=== PATIENT | male | born 1935 | race Caucasian/White ===

== ENCOUNTER 2022-05-02 13:43 | Inpatient (IN) | payer MEDICARE ==
[2022-05-02] MEDS ORDERED: SODIUM CHLORIDE 0.9% 1,000 ML IV STA (14:00)
--- NOTE | 2022-05-02 14:12 | ED Physician Documentation ---
History of Present Illness - Stated complaint Stated Complaint: DIZZINESS/WEAK - Chief complaint Chief Complaint: Neuro - History obtained from History obtained from: Patient - Additonal information Additional information: The patient comes to the emergency department with chief complaint of right leg weakness that has been going on on and off since yesterday. He also states the just in general feels as though his balance is "off". He states that he has not had any other neurologic symptoms whatsoever. No right arm weakness. No weakness in his left side. No visual changes or speech difficulties. No facial drooping. Patient states he has not had any word finding difficulties. He states he is otherwise fairly healthy and does not have any history of any cardiac issues or stroke. He does not have hypertension or diabetes. He states that right now he is feeling "pretty good", but that he still feels as though his balance is off. He denies any back pain. No lightheadedness. No other complaints at this time. Review of Systems Ten Systems: 10 systems reviewed and negative Constitutional: reports: Reviewed and negative Eyes: reports: Reviewed and negative Ears: reports: Reviewed and negative Nose: reports: Reviewed and negative Throat: reports: Reviewed and negative Cardiac: reports: Reviewed and negative Respiratory: reports: Reviewed and negative GI: reports: Reviewed and negative : reports: Reviewed and negative Skin: reports: Reviewed and negative Musculoskeletal: reports: Reviewed and negative Neurologic: reports: Focal weakness Psychiatric: reports: Reviewed and negative Endocrine: reports: Reviewed and negative Immunocompromised: reports: Reviewed and negative PD PAST MEDICAL HISTORY - Present Medications Home Medications: Ambulatory Orders Medication Instructions Recorded Confirmed Aspirin EC [Ecotrin] 81 mg PO DAILY #30 tab 05/04/22 Levothyroxine [Synthroid] 112 mcg PO QDAC #30 tab 05/04/22 - Allergies Allergies/Adverse Reactions: Allergies Allergy/AdvReac Type Severity Reaction Status Date / Time No Known Drug Allergies Allergy Verified 05/02/22 13:57 PD ED PE NORMAL - Vitals Vital signs reviewed: Yes - General General: No acute distress, Well developed/nourished, Other (The patient is alert and mildly confused.) - HEENT HEENT: Atraumatic, PERRL, EOMI, Moist mucous membranes - Neck Neck: Supple, no meningeal sign - Cardiac Cardiac: RRR, No murmur, Strong equal pulses - Respiratory Respiratory: No respiratory distress, Clear bilaterally - Abdomen Abdomen: Soft, Non tender, Non distended - Back Back: No CVA TTP - Derm Derm: Normal color, Warm and dry, No rash - Extremities Extremities: No deformity, No edema - Neuro Neuro: filer finish 2-12 intact, No sensory deficit, Normal speech, Other (5 out of 5 strength in all 4 extremities, though strength is ever so slightly decreased on the right lower extremity compared with the left. ) - Psych Psych: Normal mood, Normal affect PD ED PE EXPANDED - Neuro Neuro: Other (Alert and answers questions appropriately, but does occasional repetitive questioning, indicating that he has some memory lapse. His NIH stroke scale score is 0.) Results - Vitals Vitals: Oxygen O2 Source Room air - EKG (time done) 1406 Rate: Rate (enter#) (69) Rhythm: NSR [place]: Normal, Anterior hemiblock Intervals: Normal [place] QRS: Normal Ischemia: Normal ST segments Computer interpretation: Agree with computer - Labs Labs: Laboratory Tests 05/02/22 05/02/22 05/02/22 14:14 14:14 14:20 WBC 7.0 RBC 4.52 L Hgb 13.7 L Hct 40.7 L MCV 90.0 MCH 30.3 MCHC 33.7 RDW 14.1 Plt Count 290 MPV 9.3 Neut # (Auto) 4.9 Lymph # (Auto) 1.5 [place] # (Auto) 0.4 Eos # (Auto) 0.0 Baso # (Auto) 0.0 Absolute Nucleated RBC 0.00 Nucleated RBC % 0.0 PT 12.8 H INR 1.1 Sodium 138 Potassium 3.6 Chloride 106 Carbon Dioxide 24 Anion Gap 8.0 BUN 14 Creatinine 0.9 Estimated GFR (MDRD) 80 L Glucose 155 H Estimat Average Glucose Hemoglobin A1c % Calcium 9.4 Total Bilirubin 0.6 AST 28 ALT 25 Alkaline Phosphatase 50 Total Protein 8.0 Albumin 4.0 Globulin 4.0 Albumin/Globulin Ratio 1.0 Triglycerides Cholesterol LDL Cholesterol, Calc VLDL Cholesterol HDL Cholesterol LDL/HDL Ratio Cholesterol/HDL Ratio Lipase 35 TSH Nasal Adenovirus (PCR) Nasal B. parapertussis DNA (PCR) Nasal Coronavir 229E PCR Nasal Coronavir HKU1 PCR Nasal Coronavir NL63 PCR Nasal Coronavir OC43 PCR Nasal Enterovir/Rhinovir PCR Nasal Influenza B PCR Nasal Influenza A PCR Nasal Parainfluen 1 PCR Nasal Parainfluen 2 PCR Nasal Parainfluen 3 PCR Nasal Parainfluen 4 PCR Nasal RSV (PCR) Nasal B.pertussis DNA PCR Nasal C.pneumoniae (PCR) Fish Human Metapneumo PCR Nasal M.pneumoniae (PCR) Nasal SARS-CoV-2 (PCR) 05/02/22 05/03/22 05/03/22 14:30 06:18 06:18 WBC RBC Hgb Hct MCV MCH MCHC RDW Plt Count MPV Neut # (Auto) Lymph # (Auto) [place] # (Auto) Eos # (Auto) Baso # (Auto) Absolute Nucleated RBC Nucleated RBC % PT INR Sodium Potassium Chloride Carbon Dioxide Anion Gap BUN Creatinine Estimated GFR (MDRD) Glucose Estimat Average Glucose Hemoglobin A1c % Calcium Total Bilirubin AST ALT Alkaline Phosphatase Total Protein Albumin Globulin Albumin/Globulin Ratio Triglycerides 143 Cholesterol 222 H LDL Cholesterol, Calc 160 H VLDL Cholesterol 29 HDL Cholesterol 33 L LDL/HDL Ratio 4.8 Cholesterol/HDL Ratio 6.7 Lipase TSH 10.46 H Nasal Adenovirus (PCR) NOT DETECTED Nasal B. parapertussis DNA (PCR) NOT DETECTED Nasal Coronavir 229E PCR NOT DETECTED Nasal Coronavir HKU1 PCR NOT DETECTED Nasal Coronavir NL63 PCR NOT DETECTED Nasal Coronavir OC43 PCR NOT DETECTED Nasal Enterovir/Rhinovir PCR NOT DETECTED Nasal Influenza B PCR NOT DETECTED Nasal Influenza A PCR NOT DETECTED Nasal Parainfluen 1 PCR NOT DETECTED Nasal Parainfluen 2 PCR NOT DETECTED Nasal Parainfluen 3 PCR NOT DETECTED Nasal Parainfluen 4 PCR NOT DETECTED Nasal RSV (PCR) NOT DETECTED Nasal B.pertussis DNA PCR NOT DETECTED Nasal C.pneumoniae (PCR) NOT DETECTED Fish Human Metapneumo PCR NOT DETECTED Nasal M.pneumoniae (PCR) NOT DETECTED Nasal SARS-CoV-2 (PCR) NOT DETECTED 05/03/22 06:18 WBC RBC Hgb Hct MCV MCH MCHC RDW Plt Count MPV Neut # (Auto) Lymph # (Auto) [place] # (Auto) Eos # (Auto) Baso # (Auto) Absolute Nucleated RBC Nucleated RBC % PT INR Sodium Potassium Chloride Carbon Dioxide Anion Gap BUN Creatinine Estimated GFR (MDRD) Glucose Estimat Average Glucose 140 H Hemoglobin A1c % 6.5 H Calcium Total Bilirubin AST ALT Alkaline Phosphatase Total Protein Albumin Globulin Albumin/Globulin Ratio Triglycerides Cholesterol LDL Cholesterol, Calc VLDL Cholesterol HDL Cholesterol LDL/HDL Ratio Cholesterol/HDL Ratio Lipase TSH Nasal Adenovirus (PCR) Nasal B. parapertussis DNA (PCR) Nasal Coronavir 229E PCR Nasal Coronavir HKU1 PCR Nasal Coronavir NL63 PCR Nasal Coronavir OC43 PCR Nasal Enterovir/Rhinovir PCR Nasal Influenza B PCR Nasal Influenza A PCR Nasal Parainfluen 1 PCR Nasal Parainfluen 2 PCR Nasal Parainfluen 3 PCR Nasal Parainfluen 4 PCR Nasal RSV (PCR) Nasal B.pertussis DNA PCR Nasal C.pneumoniae (PCR) Fish Human Metapneumo PCR Nasal M.pneumoniae (PCR) Nasal SARS-CoV-2 (PCR) - Rads (name of study) CT head Radiology: Final report received, EMP read indepedently, See rad report (nad) MRI Brain Radiology: Final report received, EMP read indepedently, See rad report (Pontine infarct, subacute) CTA head Radiology: Final report received, EMP read indepedently, See rad report (Ne gative) CTA neck Radiology: Final report received, EMP read indepedently, See rad report (No hemodynamically significant stenosis. 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 The labs were unremarkable, as were EKG and CT scan. He was next sent for an MRI of the brain without contrast, which showed a small, subacute, pontine infarct. CTA showed no hemodynamically significant stenoses in the head or neck vasculature. I consulted neurology at [facility] and spoke with Dr. Soraida Azevedo, the stroke attending on duty. She recommended observation admission for TTE and PT OT. She also recommended Plavix 300 mg and a dose of aspirin, as well as to continue dual antiplatelet therapy for 21 days, then cut down to just aspirin. All of the above were ordered. 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 At this point in time, I have put in a consult to the telemetry hospitalist for admission for the patient. As it is past shift change, I have signed this patient out to Dr. Lyles, pending conversation with hospitalist and final disposition. Departure - Departure Disposition: [facility] DC/Xfer Clinical Impression: Left pontine stroke Condition: Serious Discharge Date/Time: 05/02/22 20:48
[2022-05-02 14:24] LABS: BASOPHILS % (AUTO) 0.6 %; EOSINOPHILS % (AUTO) 0.6 %; HCT - HEMATOCRIT 40.7 % (42.0-52.0); HGB - HEMOGLOBIN 13.7 g/dL (14.0-18.0); LYMPHOCYTES # (AUTO) 1.5 10^3/uL (1.5-3.5); LYMPHOCYTES % (AUTO) 21.7 %; MEAN CORPUSCULAR HEMOGLOBIN 30.3 pg (27.0-31.0); MEAN CORPUSCULAR HGB CONC 33.7 g/dL (32.0-36.0); MEAN PLATELET VOLUME 9.3 fL (7.4-11.4); MONOCYTES # (AUTO) 0.4 10^3/uL (0.0-1.0); MONOCYTES % (AUTO) 6.3 %; NEUTROPHILS # (AUTO) 4.9 10^3/uL (1.5-6.6); NEUTROPHILS % (AUTO) 70.7 %; PLT - PLATELET COUNT 290 10^3/uL (130-450); RED BLOOD COUNT 4.52 10^6/uL (4.70-6.10); RED CELL DISTRIBUTION WIDTH 14.1 % (12.0-15.0)
[2022-05-02 14:33] LABS: INR 1.1 (0.8-1.2); PT - PROTHROMBIN TIME 12.8 secs (9.9-12.6)
[2022-05-02 14:38] LABS: BILIRUBIN,TOTAL 0.6 mg/dL (0.2-1.0); CALCIUM 9.4 mg/dL (8.5-10.3); CREATININE 0.9 mg/dL (0.6-1.2); POTASSIUM 3.6 mmol/L (3.5-5.0)
[2022-05-02 15:25] LABS: B. PARAPERTUSSIS- RESP PCR PAN NOT DETECTED; B. PERTUSSIS- RESP PCR PANEL NOT DETECTED; C. PNEUMONIAE- RESP PCR PANEL NOT DETECTED; CORONAVIRUS 229E-RESP PCR NOT DETECTED; CORONAVIRUS HKU1-RESP PCR NOT DETECTED; CORONAVIRUS NL63-RESP PCR NOT DETECTED; CORONAVIRUS OC43-RESP PCR NOT DETECTED; HUMAN METAPNEUMOVIRUS NOT DETECTED; INFLUENZA A- RESP PCR PANEL NOT DETECTED; INFLUENZA B - RESP PCR PANEL NOT DETECTED; M. PNEUMONIAE- RESP PCR PANEL NOT DETECTED; PARAINFLUENZA VIRUS 1 NOT DETECTED; PARAINFLUENZA VIRUS 2 NOT DETECTED; PARAINFLUENZA VIRUS 3 NOT DETECTED; PARAINFLUENZA VIRUS 4 NOT DETECTED; RHINOVIRUS/ENTEROVIRUS NOT DETECTED; RSV- RESP PCR PANEL NOT DETECTED; SARS-CoV-2 -RESP PCR PANEL NOT DETECTED
--- NOTE | 2022-05-02 15:51 | CT Report ---
PROCEDURE: HEAD WO INDICATIONS: RLE weakness, off-balance TECHNIQUE: Noncontrast 4.5 mm thick angled axial sections acquired from the foramen magnum to the vertex. For r adiation dose reduction, the following was used: automated exposure control, adjustment of mA and/or kV according to patient size. COMPARISON: None. FINDINGS: Image quality: Excellent. CSF spaces: Basal cisterns are patent. No extra-axial fluid collections. Ventricles are normal in size and shape. Brain: No midline shift. No intracranial masses or hemorrhage. Omer-white matter interface is norm al. Skull and face: Calvarium and visualized facial bones are intact, without suspicious lesions. Sinuses: Visualized sinuses and mastoids are clear. IMPRESSION: No intracranial hemorrhage or other acute intracranial abnormality. Reviewed by: Srinath Rust MD on 05/02/2022 3:49 PM PDT Approved by: Srinath Rust MD on 05/02/2022 3:49 PM PDT Station ID: [id number]
--- NOTE | 2022-05-02 16:39 | MRI Report ---
PROCEDURE: BRAIN WO INDICATIONS: RLE weakness, imbalance TECHNIQUE: Noncontrast axial T1 spin echo, axial T2 fast spin echo, sagittal and axial FLAIR, coronal T2 fast sp in echo, axial gradient echo, axial diffusion and ADC through the brain. COMPARISON: Correlation is made with head CT performed earlier in the day, 05/02/2022. FINDINGS: Image quality: Motion artifact is noted. CSF Spaces: Basal cisterns are patent. No extra-axial fluid collections. Ventricles are normal in size and shape. Brain: There is abnormal diffusion weighted signal seen within the left medial jannette, as on series 14 image 29. There is associated dark signal seen at this site on the accompanying ADC map. Mild develo ping T2-weighted signal can be seen at this site, as on series 8 image 6. No intracranial masses or hemorrhage. Omer/white matter interface is normal. Brainstem appears norm al. No chronic ischemic insults. Normal intravascular flow voids are present. Skull and face: Calvarium has normal marrow signal. Orbits appear normal. Sinuses: Sinuses and mastoids are clear. IMPRESSION: Subacute left pontine infarction. Reviewed by: Asad Perez MD on 05/02/2022 3:38 PM ABY Approved by: Asad Perez MD on 05/02/2022 3:38 PM AKANMOL Station ID: [id number]
[2022-05-02] MEDS ORDERED: ASPIRIN CHEW 81 MG TABLET PO STA (17:39)
[2022-05-02] MEDS ORDERED: iohexoL-300 100 ML VIAL ONE (17:41)
[2022-05-02] MEDS ORDERED: iohexoL-300 100 ML VIAL IVP ONE (18:22)
--- NOTE | 2022-05-02 18:33 | CT Report ---
PROCEDURE: ANGIO NECK W INDICATIONS: L sided facial droop, L neck pain CONTRAST: 80ml Omnipaque 300 TECHNIQUE: After the administration of intravenous contrast, 1.5 mm axial sections acquired from the aortic arch to the [place] of [place]. Coronal 3-D maximum intensity projection (MIP) and/or volume rendering ref ormats were then performed. For radiation dose reduction, the following was used: automated exposur e control, adjustment of mA and/or kV according to patient size. COMPARISON: Correlation is made with the accompanying noncontrast head CT and brain MRI examinations , 05/02/2022. Correlation is made with the accompanying head CT antrum, 05/02/2022. FINDINGS: Image quality: Excellent. Carotid system: The great vessels demonstrate a conventional anatomy as they arise from the aortic a rch. The origins of the common carotid arteries appear patent. The common carotid arteries demonstr ate normal calibers and courses. The bifurcation regions appear normal bilaterally. The internal ca rotid arteries demonstrate normal caliber and course. Posterior circulation: The origins of the vertebral arteries appear patent. The more superior porti ons of the vertebral arteries demonstrate normal course and caliber. They join to form a normal appe aring basilar artery. Soft tissues: Visualized neck soft tissues demonstrate no suspicious abnormalities. The thyroid is normal in size and there are no incidental findings. In this patient with a given history of left facial droop, scrutiny is given to the course of the lef t facial nerve, including within the left parotid gland. No nasal masses or abnormal enhancement can be seen along the course of the left facial nerve, to the limits of CT. No significant right-sided ab normality is seen. Within the right superior mediastinum, there is an apparent soft tissue mass seen that measures 3 x 2 .5 cm, as on series 2 image 59. Bones: No suspicious bony lesions. Visualized cervical spine appears normally aligned. Moderate c ervical spine degenerative changes are seen. IMPRESSION: No hemodynamically significant stenosis can be seen within the arteries of the neck. 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 When clinically appropriate, please consider a dedicated chest CT with IV contrast for further ev aluation. The estimate of stenosis included in the report of the imaging study was calculated using the NASCET method Reviewed by: Asad Perez MD on 05/02/2022 5:32 PM AKDT Approved by: Asad Perez MD on 05/02/2022 5:32 PM ABY Station ID: [id number]
--- NOTE | 2022-05-02 18:34 | CT Report ---
PROCEDURE: ANGIO HEAD W/WO INDICATIONS: L sided facial droop CONTRAST: 80ml Omnipaque 300 TECHNIQUE: Precontrast 4.5 mm thick angled axial sections acquired from the foramen magnum to the vertex. Afte r the administration of intravenous contrast, 1 mm thick sections acquired through the [place] is. Postcontrast 4.5 mm thick sections then re-acquired from the foramen magnum to the vertex. 3-di mensional ucegbjn-kexawxrii-vxpqyusdjx (MIP) and/or volume rendering reformats were acquired of the c entral intracranial vasculature. For radiation dose reduction, the following was used: automated ex posure control, adjustment of mA and/or kV according to patient size. COMPARISON: Correlation is made with the accompanying noncontrast head CT as well as the prior brain MRI and the accompanying neck CT angiogram examinations performed on 05/02/2022. FINDINGS: Image quality: Excellent. Anterior circulation: Intracranial internal carotid arteries are normal in size and flow. The flow within the paired anterior cerebral arteries is normal and symmetric. The flow within the middle cer ebral arteries is normal and symmetric. The anterior communicating artery is seen. No aneurysms are seen. Posterior circulation: Visualized portions of the vertebral arteries demonstrate normal caliber, and join to form a normal appearing basilar artery. Flow within the posterior cerebral arteries is norm al and symmetric. No aneurysms are seen. CSF spaces: Ventricles are normal in size and shape. Basal cisterns are patent. No extra-axial flu id collections. Brain: The known left pontine infarction is not well seen on this study. No midline shift. No intra cranial bleeds or masses. Omer-white matter interface appears intact. Skull and face: Calvarium and facial bones appear intact, without suspicious lesions. Sinuses: Visualized sinuses and mastoids are clear. IMPRESSION: No imaging explanation is found for the patient's presenting symptoms. No culprit lesion is seen to explain the patient's left pontine infarction. Reviewed by: Asad Perez MD on 05/02/2022 5:33 PM ABY Approved by: Asad Perez MD on 05/02/2022 5:33 PM ABY Station ID: [id number]
[2022-05-02] MEDS ORDERED: CLOPIDOGREL 300 MG TABLET PO STA (19:14)
[2022-05-02] MEDS ORDERED: ATORVASTATIN 40 MG TABLET PO STA (19:15)
[2022-05-02] MEDS ORDERED: ONDANSETRON 4 MG/2 ML VIAL IVP PRN (19:36)
[2022-05-02] MEDS ORDERED: ACETAMINOPHEN 325 MG TABLET PO PRN (19:36)
[2022-05-02] MEDS ORDERED: HYDROcod/ACETAM 5/325 MG TABLET PO PRN (19:36)
[2022-05-02] MEDS ORDERED: HYDROcod/ACETAM 10 MG/325 MG TABLET PO PRN (19:36)
[2022-05-02] MEDS ORDERED: SODIUM CHLORIDE FLUSH 0.9% 10 ML SYRINGE IVP PRN (19:36)
--- NOTE | 2022-05-02 19:44 | XRAY Report ---
PROCEDURE: Chest 1 View X-Ray INDICATIONS: chest pain TECHNIQUE: One view of the chest was acquired. COMPARISON: None. FINDINGS: Surgical changes and devices: None. Lungs and pleura: No pleural effusions or pneumothorax. Lungs are clear. Mediastinum: Mediastinal contours appear normal. Heart size is normal. Bones and chest wall: No suspicious bony lesions. Overlying soft tissues appear unremarkable. IMPRESSION: No acute cardiopulmonary process demonstrated radiographically. Reviewed by: Wisam Neumann MD on 05/02/2022 7:43 PM PDT Approved by: Wisam Neumann MD on 05/02/2022 7:43 PM PDT Station ID: [id number]
--- NOTE | 2022-05-02 19:48 | ED Physician Documentation ---
ED Addendum - Addendum Addendum: 05/02/22 19:47 Patient endorsed to me by Dr. Martel awaiting telehealth admission per neurologist recommendations. d/w telehealth, accepting for admission. d/w patient and family who are agreeable.
--- NOTE | 2022-05-02 20:19 | HISTORY & PHYSICAL EXAMINATION ---
Chief Complaint - Chief Complaint Chief Complaint: Dizziness with right sided weakness History of Present Illness - Admitted From Admitted From:: ER - History Obtained From Records Reviewed: yes History obtained from: Patient and his daughter Babs at bedside Exam Limitations: Telecart - History of Present Illness HPI Comment/Other: The patient comes to the emergency department with chief complaint of right leg weakness that has been going on on and off since yesterday. He also states the just in general feels as though his balance is "off". He states that he has not had any other neurologic symptoms whatsoever. No right arm weakness. No weakness in his left side. No visual changes or speech difficulties. No facial drooping. Patient states he has not had any word finding difficulties. He states he is otherwise fairly healthy and does not have any history of any cardiac issues or stroke. He does not have hypertension or diabetes. He states that right now he is feeling "pretty good", but that he still feels as though his balance is off. He denies any back pain. No lightheadedness. No other complaints at this time. 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 No smoking, rarely a glass of wine, no illicit drugs. History - Past Medical History Cardiovascular: reports: None Respiratory: reports: None Neuro: reports: None Endocrine/Autoimmune: reports: None GI: reports: None VEHICLE DAMAGE APPRAISER: reports: None : reports: None HEENT: reports: None Psych: reports: None Musculoskeletal: reports: None Derm: reports: None Meds/Allgy - Home Medications Home Medications: Ambulatory Orders Medication Instructions Recorded Confirmed No Known Home Medications 05/02/22 05/02/22 - Allergies Allergies/Adverse Reactions: Allergies Allergy/AdvReac Type Severity Reaction Status Date / Time No Known Drug Allergies Allergy Verified 05/02/22 13:57 Review of Systems - Constitutional Constitutional: reports: Weakness - Neurological Neurological: reports: Dizziness, Other (right lower extremity decrease in strenght) Prior Level of Functionality: Excellent with his ADL still drives and daily exercise Exam - Vital Signs Vital Signs: Vital Signs x48h Temp Pulse Resp BP Pulse Ox 05/02/22 19:00 74 16 156/98 H 100 05/02/22 17:00 60 16 130/88 H 96 05/02/22 15:56 56 L 16 132/92 H 98 05/02/22 13:56 36.5 C 73 16 143/83 H 94 05/02/22 13:49 36.4 C L 73 16 143/83 H 94 - Physical Exam General Appearance: positive: No acute distress, Alert Eyes Bilateral: positive: Normal inspection, PERRL, Other (Wears Glasses) ENT: positive: ENT inspection nml, Pharynx nml, No signs of dehydration Neck: positive: Nml inspection, Thyroid nml, No JVD, Trachea midline Respiratory: positive: Chest non-tender, No respiratory distress, Breath sounds nml Cardiovascular: positive: Regular rate & rhythm, No murmur, No gallop Peripheral Pulses: positive: 2+ Abdomen: positive: Non-tender, No organomegaly, Nml bowel sounds, No distention Back: positive: Nml inspection Skin: positive: Color nml, No rash, Warm, Dry Extremities: positive: Non-tender, Full ROM, Nml appearance Neurologic/Psychiatric: positive: Oriented x3, CN's nml (2-12), Other (Mild weakness in right lower ext) Sepsis Event Note (H) - Evaluation Current Stage of Sepsis: Ruled out Conclusion/Plan - Problem List (1) Left pontine stroke Conclusion/Plan: Admit for observation TeleNeurology consulted by ER Recommended ASA 325 mg with Plavix 300 mg Will start on Statin Family apprehensive about statin will discuss mroe with am CTA of Head negative CTA of neck negative Incidental mediastinal lymph node enlargement Will need CT chest with contrast as outpatient Check TSH, Lipid, A1c PT/ot Koby TTE to rule out any PFO vs any LAE bus monitor to r/o any arrhythmias once all work up completed and if able to ambulate safely plan to dc in 24 hours Discussed all the above with patient and daughter SCD Full code - Lab Results Fish Bones: 05/02/22 14:14 05/02/22 14:14 - Diagnostic Imaging Results Diagnostic Imaging Results: positive: Final report reviewed - EKG Results EKG Comparison: Old EKG unavailable
[2022-05-03] MEDS: SODIUM CHLORIDE FLUSH 0.9% 10 ML SYRINGE IVP SCH ×3 (00:09→16:31)
[2022-05-03 06:41] LABS: CHOL/HDL RATIO 6.7 (<5.0); CHOLESTEROL 222 mg/dL; HDL CHOLESTEROL 33 mg/dL; LDL CHOLESTEROL,CALCULATED 160 mg/dL; LDL/HDL RATIO 4.8 (<3.6); TRIGLYCERIDES 143 mg/dL; VLDL CHOLESTEROL 29 mg/dL
[2022-05-03] MEDS ORDERED: ASPIRIN 325 MG TABLET PO SCH (09:00)
[2022-05-03 12:55] LABS: ESTIMATED AVERAGE GLUCOSE 140 mg/dL (70-100); HEMOGLOBIN A1c% 6.5 % (4.27-6.07)
--- NOTE | 2022-05-03 12:58 | PROVIDER PROGRESS NOTE ---
Assessment/Plan - Problem List (1) Left pontine stroke Assessment/Plan: He noticed that he is staggering to his R side with walking. He denies any other complaints. His daughter is at bedside and states that his short-term memory has been not great over the last 3 years and it is not any different today. (He forgets some of the names of his 15 grandchildren, he forgets some of his 4 children's names because they did not live with him due to a divorce). Telemetry shows sinus rhythm, no signs of A. fib. An Echo has been ordered, not done yet today. PT and OT evaluations have been ordered. PT does confirm that he walks with a stagger, needs a cane or front wheel walker for support. OT is to do a cognitive evaluation today. Plan: Continue with daily aspirin. I will not continue both aspirin and Plavix currently, since he has never been on ASA.. Awaiting the Echo. Because of his memory impairment, and new stroke, restrictions for driving will be ordered. A DMV form was completed and submitted today. I told the patient and daughter at bedside about this new restriction. We are allowing permissive hypertension for 24 to 48 hours. Check fasting lipids. He will be made an Inpatient given the persistent neurologic deficit and awaiting further medication adjustments and results of testing (2) Hypothyroidism associated with surgical procedure Assessment/Plan: Daughter reports that when he lived in [place] (until moving to [facility] 3 years ago), he underwent a thyroid partial removal for unknown diagnosis. The patient confirms this and cannot remember what his diagnosis was. The daughter reported he is prescribed a thyroid replacement which has and he does not take it anyway. The daughter then went on to say that she "does not believe in pharmaceuticals, believes in using natural treatments is much as possible". It is unclear if she ever reminded him to use this prescription medication therefore. I then discussed his high TSH level (indicating untreated Hypothyroidism) with the patient and daughter at bedside. Will resume the patient on Synthroid. His home dose was 137 mcg. We will start 112 mcg daily every morning. This will need outpatient follow-up with lab tests and further management. (3) Poor short term memory Assessment/Plan: Patient has extremely poor short-term memory; he asked where he was of his RN just 5 minutes apart after being told. He underwent a cognitive evaluation by OT today and scored 23/30. 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 The daughter gave examples of this poor memory as well; He cannot remember the names of his 15 grandchildren but "who can remember 15 names?". He cannot remember some of his 4 children's names but "we children did not live with him since being youngsters because of the divorce of parents, he had the kids during caballero only". 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 She says he now only drives from the house to a restaurant and post office, no other places. Because of his acute stroke plus poor memory, a DMV form has been submitted by this Hospitalist to restrict his driving. I told the patient and his daughter that driving can be reconsidered and re-ordered when he is reevaluated by his PCP, for example, after Home Health PT. - Current Meds Current Meds: Current Medications Generic Name Dose Route Start Last Admin Trade Name Jamari PRN Reason Stop Dose Admin Sodium Chloride 10 ml 05/03/22 01:00 05/03/22 09:09 Sodium Chloride Flush 0.9% 10 Ml Syringe IVP 10 ml 0100,0900,1700 [facility] Administration - Lab Result Fish Bone Diagrams: 05/02/22 14:14 05/02/22 14:14 - Other Other Results/Comments: Attestation: The patient is expected to be discharged or transferred to another facility within 96 hours: Yes - Additional Planning My Orders: My Active Orders 05/03/22 10:06 Telemetry- [RC] Q4HR 05/03/22 Lunch DIET [Low Sodium Diet] [DIET] 05/04/22 09:00 Aspirin EC [Ecotrin] 81 mg PO DAILY Subjective - Subjective Patient Reports: Resting Comfortably, Other (L foot weak) Nursing Reports: Other (RN and PT notice he staggers to the R.) Objective Vital Signs: Vital Signs - 24 hr 05/02/22 05/02/22 05/02/22 13:49 13:56 15:56 Temperature 36.4 C L 36.5 C Heart Rate 73 73 56 L Heart Rate [ Brachial] Respiratory 16 16 16 Rate Blood Pressure 143/83 H 143/83 H 132/92 H Blood Pressure [Left Brachial artery] Blood Pressure [Right Brachial artery] O2 Saturation 94 94 98 05/02/22 05/02/22 05/02/22 17:00 19:00 21:07 Temperature 36.4 C L Heart Rate 60 74 Heart Rate [ 61 Brachial] Respiratory 16 16 18 Rate Blood Pressure 130/88 H 156/98 H Blood Pressure 160/94 H [Left Brachial artery] Blood Pressure [Right Brachial artery] O2 Saturation 96 100 97 05/03/22 05/03/22 05/03/22 00:07 06:20 09:14 Temperature 36.3 C L 36.3 C L 36.7 C Heart Rate Heart Rate [ 60 67 85 Brachial] Respiratory 20 18 18 Rate Blood Pressure Blood Pressure 167/81 H 156/89 H [Left Brachial artery] Blood Pressure 166/91 H [Right Brachial artery] O2 Saturation 97 96 95 Oxygen O2 Source Room air I&O (Last 24 Hrs): Intake and Output Totals x24h 05/01/22 05/02/22 05/03/22 23:59 23:59 23:59 Intake Total 1000 420 Balance 1000 420 General: Alert, No acute distress HEENT: Atraumatic, Mucous membr. moist/pink Neck: Supple, No JVD Neuro: Alert, Disoriented (He had to ask where he is repeatedly during the same bedside visit), Other (L foot and leg weakness) Cardiovascular: Regular rate, No murmurs Respiratory: No respiratory distress, Breath sounds nml Abdomen: Normal bowel sounds, Soft Extremities: No clubbing, No edema - Results Results: Laboratory Results WBC 7.0 x10^3/uL (4.8-10.8) 05/02/22 14:14 RBC 4.52 10^6/uL (4.70-6.10) L 05/02/22 14:14 Hgb 13.7 g/dL (14.0-18.0) L 05/02/22 14:14 Hct 40.7 % (42.0-52.0) L 05/02/22 14:14 MCV 90.0 fL (80.0-94.0) 05/02/22 14:14 MCH 30.3 pg (27.0-31.0) 05/02/22 14:14 MCHC 33.7 g/dL (32.0-36.0) 05/02/22 14:14 RDW 14.1 % (12.0-15.0) 05/02/22 14:14 Plt Count 290 10^3/uL (130-450) 05/02/22 14:14 MPV 9.3 fL (7.4-11.4) 05/02/22 14:14 Neut # (Auto) 4.9 10^3/uL (1.5-6.6) 05/02/22 14:14 Lymph # (Auto) 1.5 10^3/uL (1.5-3.5) 05/02/22 14:14 [place] # (Auto) 0.4 10^3/uL (0.0-1.0) 05/02/22 14:14 Eos # (Auto) 0.0 10^3/uL (0.0-0.7) 05/02/22 14:14 Baso # (Auto) 0.0 10^3/uL (0.0-0.1) 05/02/22 14:14 Absolute Nucleated RBC 0.00 x10^3/uL 05/02/22 14:14 Nucleated RBC % 0.0 /100WBC 05/02/22 14:14 PT 12.8 secs (9.9-12.6) H 05/02/22 14:20 INR 1.1 (0.8-1.2) 05/02/22 14:20 Sodium 138 mmol/L (135-145) 05/02/22 14:14 Potassium 3.6 mmol/L (3.5-5.0) 05/02/22 14:14 Chloride 106 mmol/L (101-111) 05/02/22 14:14 Carbon Dioxide 24 mmol/L (21-32) 05/02/22 14:14 Anion Gap 8.0 (6-13) 05/02/22 14:14 BUN 14 mg/dL (6-20) 05/02/22 14:14 Creatinine 0.9 mg/dL (0.6-1.2) 05/02/22 14:14 Estimated GFR (MDRD) 80 (>89) L 05/02/22 14:14 Glucose 155 mg/dL (70-100) H 05/02/22 14:14 Calcium 9.4 mg/dL (8.5-10.3) 05/02/22 14:14 Total Bilirubin 0.6 mg/dL (0.2-1.0) 05/02/22 14:14 AST 28 IU/L (10-42) 05/02/22 14:14 ALT 25 IU/L (10-60) 05/02/22 14:14 Alkaline Phosphatase 50 IU/L (42-121) 05/02/22 14:14 Total Protein 8.0 g/dL (6.7-8.2) 05/02/22 14:14 Albumin 4.0 g/dL (3.2-5.5) 05/02/22 14:14 Globulin 4.0 g/dL (2.1-4.2) 05/02/22 14:14 Albumin/Globulin Ratio 1.0 (1.0-2.2) 05/02/22 14:14 Triglycerides 143 mg/dL (-149) 05/03/22 06:18 Cholesterol 222 mg/dL (-199) H 05/03/22 06:18 LDL Cholesterol, Calc 160 mg/dL (-129) H 05/03/22 06:18 VLDL Cholesterol 29 mg/dL 05/03/22 06:18 HDL Cholesterol 33 mg/dL (60-) L 05/03/22 06:18 LDL/HDL Ratio 4.8 (<3.6) 05/03/22 06:18 Cholesterol/HDL Ratio 6.7 (<5.0) 05/03/22 06:18 Lipase 35 U/L (22-51) 05/02/22 14:14 TSH 10.46 uIU/mL (0.34-5.60) H 05/03/22 06:18 Nasal Adenovirus (PCR) NOT DETECTED 05/02/22 14:30 Nasal B. parapertussis DNA (PCR) NOT DETECTED 05/02/22 14:30 Nasal Coronavir 229E PCR NOT DETECTED 05/02/22 14:30 Nasal Coronavir HKU1 PCR NOT DETECTED 05/02/22 14:30 Nasal Coronavir NL63 PCR NOT DETECTED 05/02/22 14:30 Nasal Coronavir OC43 PCR NOT DETECTED 05/02/22 14:30 Nasal Enterovir/Rhinovir PCR NOT DETECTED 05/02/22 14:30 Nasal Influenza B PCR NOT DETECTED 05/02/22 14:30 Nasal Influenza A PCR NOT DETECTED 05/02/22 14:30 Nasal Parainfluen 1 PCR NOT DETECTED 05/02/22 14:30 Nasal Parainfluen 2 PCR NOT DETECTED 05/02/22 14:30 Nasal Parainfluen 3 PCR NOT DETECTED 10 14:30 Nasal Parainfluen 4 PCR NOT DETECTED 05/02/22 14:30 Nasal RSV (PCR) NOT DETECTED 05/02/22 14:30 Nasal B.pertussis DNA PCR NOT DETECTED 05/02/22 14:30 Nasal C.pneumoniae (PCR) NOT DETECTED 05/02/22 14:30 Fish Human Metapneumo PCR NOT DETECTED 05/02/22 14:30 Nasal M.pneumoniae (PCR) NOT DETECTED 05/02/22 14:30 Nasal SARS-CoV-2 (PCR) NOT DETECTED 05/02/22 14:30 Sepsis Event Note (H) - Evaluation Current Stage of Sepsis: Ruled out
[2022-05-03] MEDS ORDERED: CLOPIDOGREL 75 MG TABLET PO SCH (20:00)
[2022-05-03] MEDS ORDERED: ATORVASTATIN 40 MG TABLET PO SCH ×2 (20:00→21:00)
[2022-05-04] MEDS: SODIUM CHLORIDE FLUSH 0.9% 10 ML SYRINGE IVP SCH ×2 (07:00→11:22)
[2022-05-04] MEDS ORDERED: LEVOTHYROXINE 75 MCG TABLET PO SCH (07:00)
[2022-05-04] MEDS ORDERED: LEVOTHYROXINE 112 MCG TABLET PO SCH (07:00)
[2022-05-04 08:04] LABS: CALCIUM 9.4 mg/dL (8.5-10.3); CREATININE 0.8 mg/dL (0.6-1.2); POTASSIUM 3.5 mmol/L (3.5-5.0)
[2022-05-04] MEDS ORDERED: ASPIRIN EC 81 MG TABLET PO SCH (09:00)
[2022-05-04 11:19] VITALS: BP 149/80
--- NOTE | 2022-05-04 13:08 | Discharge Plan ---
Discharge Plan Problem Reviewed?: Yes Disposition: 06 Home Health Service Condition: Fair Prescriptions: Aspirin EC [Ecotrin] 81 mg PO DAILY #30 tab Levothyroxine [Synthroid] 112 mcg PO QDAC #30 tab Diet: Cardiac (Low salt, low starches and sweets, and low fat diet.) Activity Restrictions: Activity as Tolerated Shower Restrictions: No Driving Restrictions: Yes (No driving due to poor memory & new stroke) Assistance Devices: Walker Weight Bearing: Full Weight Instruction Topics: ED Stroke Completed Health Concerns: The patient was admitted to the hospital because of a stroke. He has weakness of the right leg and foot and a staggering gait. He needs to use a walker for ambulation for balance and support. We also found that he has very poor short- term memory, and has poor insight and questionable decision-making capabilities. Physical Therapy evaluated the patient and recommends he undergo further PT at home. Driving is now restricted/prohibited because of the poor memory and the stroke causing leg weakness. Occupational Therapy documented his poor memory and poor insight and has advised he have 24/7 support, and should not live alone. It is expected that he will need reminders about taking his medications as prescribed. A referral has been sent for a Home Health agency to provide in- home PT, OT, also a Bath Aid, RN and Hunter. The cause of the stroke is plaque with clot and cholesterol that blocks an artery in the brain. He was therefore evaluated for cholesterol level and his is high (his LDL bad cholesterol was 222 a160 and should be 70-100 in a patient who had a stroke). He now needs to be on a low-cholesterol diet and if no better in several months, then a statin cholesterol medication needs to be considered. We checked him for diabetes because his serum blood glucose levels are elevated more than normal and found him to be a borderline diabetic with A1c of 6.3. This means he needs to eat a low carbohydrate diet (decreasing his starches and sweets). He could have further management with his diet by his Primary Care Provider. Going out often to eat restaurant food is therefore not advised. He should now be taking 1 aspirin daily, as a mild "blood thinner", to prevent another stroke. He should be on this lifelong unless there is hemorrhage. We also tested his thyroid level and it is negligible in his bloodstream therefore thyroid medication, which he stopped taking, has been newly prescribed. I suspect he will not be as confused with an improved blood thyroid hormone level. This requires a blood check in 1 to 2 months to adjust the dose if needed. New prescriptions for Synthroid and daily enteric-coated aspirin have been electronically sent to the [facility]. Plan of Treatment: As above. Care Goals: Improvement in symptoms and stabilization are the goals. Assessment: These instructions are provided as a reminder for the patient and his daughter. Additional Instructions or Follow Up instructions: The patient should see his primary care provider, Dr. Monroe, in 1 to 2 weeks for hospital follow-up office visit. Dr. Monroe will adjust his medications going forward. Also, if the patient has new or worsening symptoms, call Dr. Monroe's office for advice or come to the ER. No Smoking: If you smoke, Please STOP! Call for help. Follow-up with: Fabio Monroe MD [Provider Admit Priv/Credential] -
--- NOTE | 2022-05-04 13:38 | DISCHARGE SUMMARY ---
Discharge Summary Admit Date: 05/02/22 Discharge Date: 05/04/22 Discharging Provider: Dr Suzanne Villagran Primary Care Provider: Dr Fabio Monroe Code Status: Attempt Resuscitation Condition at Discharge: Serious Discharge Disposition: [facility] History of Present Illness: The patient comes to the emergency department with chief complaint of right leg weakness that has been going on on and off since yesterday. He also states the just in general, he feels as though his balance is "off". He states that he has not had any other neurologic symptoms whatsoever. No right arm weakness. No weakness in his left side. No visual changes or speech difficulties. No facial drooping. Patient states he has not had any word finding difficulties. He states he is otherwise fairly healthy and does not have any history of any cardiac issues or stroke. He does not have hypertension or diabetes. He states that right now he is feeling "pretty good", but that he still feels as though his balance is off. He denies any back pain. No lightheadedness. No other complaints at this time. 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 In ER he looks comfortable able to move all 4 ext, cranial nerves 2 to 12 intact, takes some multivitamins and supplements but no other meds and is in top 10 percentile of people in his age group when it comes to exercise and living a healthy lifestyle. No smoking, rarely a glass of wine, no illicit drugs. He is being placed in Observation to evaluate a TIA versus stroke. - HOSPITAL COURSE Hospital Course: (1) Left pontine stroke He underwent stroke evaluation and the CT head showed no acute changes, his CTA head and neck showed stenoses. He was made an Inpatient given the persistent neurologic deficit. His daughter at bedside said his short-term memory has been poor over the last 3 years, especially the last 2 mos, and felt it was not any different. He received Aspirin and Plavix in the ER. Telemetry showed no signs of A. fib. An Echo showed normal LVEF and no intra-cardiac clot or shunt. PT evaluation noted that he had a shuffling gait, poor balance, was staggering to the right and recommended a front wheel walker for ambulation and that he continue to have more PT. OT evaluation reported good ADL abilities but poor memory. Because of his memory impairment, and new stroke, restrictions for driving were ordered and a DMV form submitted. He was discharged on a daily baby aspirin. He needs a walker or cane for ambulation. (2) Hypothyroidism associated with surgical procedure Daughter reported that when he lived in [place] (until moving to [facility] 3 years ago), he underwent a partial thyroid removal for unknown diagnosis. The patient could not remember what his diagnosis was. The daughter reported he was prescribed a thyroid replacement which has and he "did not take it anyway". The daughter then went on to say that she herself "does not believe in pharmaceuticals, but believes in using natural treatments is much as possible". It is unclear if she therefore reminded him to use this prescription medication. His TSH level was 10.4, indicating under treated Hypothyroidism. He was started on Synthroid replacement. His old home dose was 137 mcg. He was discharged on 112 mcg daily every morning. (This may help his memory somewhat). He will need outpatient follow-up with thyroid lab testing in 1-2 mos. (3) Poor short term memory Patient has extremely poor short-term memory; he asked where he was of his RN just 5 minutes after being told. The daughter gave examples of his poor memory as well; he cannot remember the names of his 15 grandchildren but she diminished this by saying "who can remember 15 names?". He also cannot remember some of his 4 children's names but said "we children did not live with him since being youngsters because of the divorce of the parents, and he only had the kids during caballero". He underwent a cognitive evaluation by OT and scored 23/30 (Mild Cognitive Impairment. 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 She reported he now only drives from the house to the [facility] restaurant and post office. The driving restriction was strongly endorsed and a DMV form was submitted by this Hospitalist to restrict his driving, because of his acute stroke plus poor memory. I told the patient and his daughter that driving could be reconsidered and restriction lifted, when he is reevaluated by his PCP, however, I feel that will be very unlikely given his marked confusion that we witnessed. OT recommended that he can no longer live alone, and even needs 24/7 supervision now. The daughter said she would arrange for that. (4) Acute Delirium On his second night as an inpatient, he had hospital psychosis (with sundowning), was awake all night. He got out of bed 20 times, pulled out his IV several times, pulled off his telemetry. He thought he was on a boat and later thought that he was in his own home and was about to call the police. His d lulaer was called overnight and briefly could reorient him. The next morning, in her presence, he tried to answer questions about these events by joking. (5) Borderline DM His morning fasting labs showed glucose levels of 143-155. Therefore an A1c was drawn and returned at 6.3, consistent with borderline diabetes. The daughter was counseled that he needs to decrease his starches and sweets and that eating daily at the [employer] and having desserts frequently is no longer advised. He needs follow-up with his PCP regarding better glucose control. (6) Elevated cholesterol His fasting lipid levels showed a total cholesterol of 222 with LDL 160. The daughter was advised that the LDL should be between 70 and 100. Initial management should be to decrease fried foods and fatty foods and once again eating at [employer] daily is no longer advised. - ALLERGIES Allergies/Adverse Reactions: Allergies Allergy/AdvReac Type Severity Reaction Status Date / Time No Known Drug Allergies Allergy Verified 05/02/22 13:57 - MEDICATIONS Home Medications: Ambulatory Orders Medication Instructions Recorded Confirmed Aspirin EC [Ecotrin] 81 mg PO DAILY #30 tab 05/04/22 Levothyroxine [Synthroid] 112 mcg PO QDAC #30 tab 05/04/22 - PHYSICAL EXAM AT DISCHARGE General Appearance: positive: No acute distress, Alert Eyes Bilateral: positive: Normal inspection, EOMI ENT: positive: ENT inspection nml, No signs of dehydration Neck: positive: Nml inspection, No JVD Respiratory: positive: No respiratory distress, Breath sounds nml Cardiovascular: positive: Regular rate & rhythm, No murmur Abdomen: positive: Non-tender, No distention Skin: positive: Warm, Dry Extremities: positive: Non-tender, No pedal edema Neurologic/Psychiatric: positive: Disoriented to person, Disoriented to place, Disoriented to time, Weakness (R leg) - LABS Result Diagrams: 05/02/22 14:14 05/04/22 07:50 - DIAGNOSTIC IMAGING Diagnostic Imaging Results: Final report reviewed - SEPSIS Current Stage of Sepsis: Ruled out - FOLLOW UP Follow Up: See PCP in 1 week for a hospital follow up visit. - TIME SPENT Time Spent in Discharge (Minutes): 45
== END 2022-05-04 14:37 | disposition home health service (06) | DRG 66 ==
LOC: ED 13:43 → MS2 19:37 → OBSVTOIN 05-03 10:04
PROVIDERS: ADMIT Internal Medicine; ATTEND Internal Medicine
DX: I63.89 Other cerebral infarction (principal); G83.11 Monoplegia of lower limb affecting right dominant side; R91.8 Other nonspecific abnormal finding of lung field; Z20.822 Contact with and (suspected) exposure to COVID-19; R26.0 Ataxic gait; R29.700 NIHSS score 0; E89.0 Postprocedural hypothyroidism; R41.3 Other amnesia; R73.03 Prediabetes; E78.00 Pure hypercholesterolemia, unspecified; R41.0 Disorientation, unspecified
CPT/HCPCS: 36415; 70450; 70496; 70498; 70551; 71045; 80048; 80053; 80061; 83036; 83690; 84443; 85025; 85610; 87633; 93005; 93306; 97162; 97166; 97530; 99284; 99285; A9270; G0378; Q9967; 83721

== ENCOUNTER 2022-06-21 12:20 | Outpatient (CLI) | payer MEDICARE ==
[2022-06-21 12:43] LABS: CREATININE 0.8 mg/dL (0.6-1.2)
[2022-06-21] MEDS ORDERED: iohexoL-300 100 ML VIAL ONE (13:24)
[2022-06-21] MEDS ORDERED: iohexoL-300 100 ML VIAL IVP ONE (14:24)
--- NOTE | 2022-06-21 17:36 | CT Report ---
PROCEDURE: CHEST W INDICATIONS: MEDIASTINAL LYMPH NODE CONTRAST:100ml Omnipaque 300 TECHNIQUE: After the administration of intravenous contrast, 1 mm axial images were acquired from the pulmonary apices through the posterior costophrenic angles. Axial 5 mm soft tissue kernel reconstructions were performed as well as 8 mm axial MIP and coronal and sagittal 5 mm reformations. For radiation dose reduction, the following was used: automated exposure control, adjustment of mA and/or kV according to patient size. COMPARISON: CTA neck dated 05/02/2022.. FINDINGS: Image quality: Excellent. Lungs and pleura: No pulmonary nodules. No acute air space opacities. No pleural effusions or pneum othorax. Central and peripheral airways are patent and normal in caliber. Mediastinum: Heart size is normal. No pericardial effusion. A superior mediastinal mass, to the rig ht of the trachea, has increased in size over short period of time. On previous image 60/2 it measure d approximately 2.8 x 3.1 cm. On current image 14/3 it measures approximately 3.8 x 3.9 cm. It is hig hly suspicious for malignancy. It may potentially extrinsically involve the wall of the upper thoraci c esophagus. No other mediastinal adenopathy. Thoracic aorta and central pulmonary arteries are feli l in size. Esophagus is normal in caliber. No hiatal hernia. Bones and chest wall: No suspicious bony lesions. No vertebral body compression fractures. No axil alexis or supraclavicular adenopathy by size criteria. The thyroid is normal in size and there are no incidental findings.. Abdomen: Visualized upper abdominal solid organs appear normal. Upper abdominal bowel loops are nor mal in caliber. Moderate proximal celiac artery stenosis. IMPRESSION: 1. Rapid interval growth over short period of time of a superior mediastinal mass to the right the tr achea, possibly extrinsically involving the wall of the esophagus. It is highly suspicious for malign ela. Comment: Recommend CT abdomen and pelvis with contrast to check for metastatic disease in the abdomen and pelvis. Consider PET/CT. This lesion would be amenable to mediastinoscopy. Perhaps, it may be am enable to endoscopic transbronchial biopsy. CLINICAL RECOMMENDATION STATEMENTS: In patients <35 years with an ITN detected on CT, MRI, or extrathyroidal ultrasound, the Committee re commends further evaluation with dedicated thyroid ultrasound if the nodule is "e1 cm and has no susp icious imaging features, and if the patient has normal life expectancy. In patients "e35 years with an ITN detected on CT, MRI, or extrathyroidal ultrasound, the Committee r ecommends further evaluation with dedicated thyroid ultrasound if the nodule is "e1.5 cm and has no s uspicious imaging features, and if the patient has normal life expectancy. (ACR, 2014) Reviewed by: Heath Thakkar MD on 06/21/2022 5:35 PM PST Approved by: Heath Thakkar MD on 06/21/2022 5:35 PM PST Station ID: [id number]
== END 2022-06-21 12:21 | disposition home or self-care (01) ==
LOC: DI 12:20
PROVIDERS: ATTEND Family Medicine
DX: J98.59 Other diseases of mediastinum, not elsewhere classified (principal)
CPT/HCPCS: 36415; 71260; 82565; Q9967

== ENCOUNTER 2022-09-05 08:44 | Outpatient (CLI) | payer MEDICARE | END 2022-09-05 08:45 | disposition critical access hospital (66) | LOC: EMS 08:44 | DX: I46.9 Cardiac arrest, cause unspecified (principal) | CPT/HCPCS: A0425; A0433 ==

== ENCOUNTER 2022-09-05 08:52 | Emergency (ER) | payer MEDICARE ==
[2022-09-05] MEDS ORDERED: EPINEPHrine ABBOJECT 1 MG/10 ML SYRINGE IVP ONE (08:53)
--- NOTE | 2022-09-05 09:08 | ED Physician Documentation ---
PD HPI CPR - Stated complaint Stated Complaint: CPR - History obtained from History obtained from: Family (children subsequently are able to give history of recent illness and events today.), EMS (Medic gave description of the patient condition on their arrival and the prehospital treatments thus far.) - History of Present Illness Timing - onset: How many hours ago (07/18), Today (the patient has had cough, congesiton, malaise and general weakness the past few days, with less appetite. Had not eaten much today. Was helped to his rooma nd bed to rest. Family went back to check on him about 15 minutes later and found him not breathing/no pulse. CPR started by son. EMS called.) Timing - onset during: Rest Preceding symptoms: Dyspnea, Weakness, Other (few days of cough, congestion, malaise. Home COviD test negative.) Contributing factors: CAD. No: Diabetes Recently seen: Not recently seen Witnessed: Arrest not witnesssed Fall: No fall Bystander CPR: Bystander CPR, Downtime before CPR (up to 15 minutes) EMS findings: Unresponsive, Apneic, Pulseless, PEA Treatment MONOLOGIST: CPR, BVM. No: Intubated (attempted intubation but unable to pass tube through vocal cords, so Medic did tracheostomy instead. Gave fluids. Checked sugar. Gave epi few times. PEA changed to V-tach once and shocked with return to PEA.) Advanced directive: No advanced directive, Full code Review of Systems Unable to obtain: Unresponsive PD PAST MEDICAL HISTORY - Past Medical History Cardiovascular: None Respiratory: None Neuro: None Endocrine/Autoimmune: None GI: None DIRECTOR OF PROCUREMENT: None : None HEENT: None Psych: None Musculoskeletal: None Derm: None - Present Medications Home Medications: Ambulatory Orders Medication Instructions Recorded Confirmed Aspirin EC [Ecotrin] 81 mg PO DAILY #30 tab 05/04/22 Levothyroxine [Synthroid] 112 mcg PO QDAC #30 tab 05/04/22 - Allergies Allergies/Adverse Reactions: Allergies Allergy/AdvReac Type Severity Reaction Status Date / Time No Known Drug Allergies Allergy Verified 05/02/22 13:57 - Social History Smoking Status: Never smoker PD ED PE NORMAL - Vitals Vital signs reviewed: Yes (he does not have spontenous breathing. Monitor shows wide complex beats) - General General: No: Well developed/nourished (appears frail and thin) - HEENT HEENT: Other (anterior neck cricheostomy tube present midline anterior without noted ongoing bleeding. BVM easily per RT.) - Cardiac Cardiac: Other (no heart sounds heard nor pulses on brief pulse check shortly after arrival. ) - Respiratory Respiratory: Clear bilaterally (bagged breath have symmetric airflow bilaterally. 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 ) Results - Vitals Vitals: Oxygen O2 Source Ambu bag PD Medical Decision Making - ED course Complexity details: considered differential (main info from eMS initially. Patient with recent uRI symptoms for days and then found pea after lying down to rest at home. Unclear the cause of the arrest. ), d/w family ED course: the patient arrives via EMS with already over an hour of prehospital ACLS without any pulses obtained during it. PEA to v-Tach and back to PEA. Arrives into er and cpr continued as transtioned to er bed. EPI dose given again. after 2-3 minutes, we did pulse check and did not find one with monitor showing complexes wider at rate 40s. cpr and another epi given as U/S brought to bedside. Next pulse check, I evaluated the chest probe and saw no cardiac motion at all. monitor still with PEA. at that point, with prolonged aCLS code treatment, and no cardiac contractility, i felt further pursuit of treatment was futile and the code was stopped. Subsequently, about 15-20 minutes later, family members arrived to front worker, and they were allowed to the quiet room. I went there and updated the family about patient nonresponsiveness to rescuscitation and is . they requested to see the patient. - Critical Care Time(min): 15 Time Includes: Coordinate care, See progress note Data interpretation: Cardiac output (and endtidal CO2 level. ) Departure - Departure Disposition: 20 Clinical Impression: Bronchitis, PEA (Pulseless electrical activity) Condition: Critical Discharge Date/Time: 09/05/22 12:38
== END 2022-09-05 12:38 | disposition expired ==
LOC: EDBD → EDUNIT# → ED 08:52
DX: I46.9 Cardiac arrest, cause unspecified (principal); J40 Bronchitis, not specified as acute or chronic
CPT/HCPCS: 92950; 99285